=== PATIENT | female | born 1980 | race African-American/Black ===

== ENCOUNTER 2016-09-14 21:17 | Emergency (ER) | payer OTHER ==
[2016-09-14 21:23] VITALS: TEMP 97.7; BMI 37.2
[2016-09-14] MEDS ORDERED: ACETAMINOPHEN 500 MG TABLET (FP) PO ONE (23:51)
--- NOTE | 2016-09-14 23:51 | PDOC ---
History of Present Illness - History of Present Illness Initial Comments: 09/15/16 01:23 Patient is a 36 year old female significant medical hx of gestational HTN and migraines who is presenting to the ED with three days of sinus pressure, dry cough, rhinorrhea, nasal congestion, and headache. Patient complains of left sided headache with photophobia; she notes its like her her past migraines. The patient states that her migraine developed today. The patient has been treating her URI symptoms by alternating between Dayquil and Nyquil. The patient came to the ED today because she ran out of excedrin which she uses to treat her migraines. Denies fever, chills, nausea, vomiting, blurry vision, and diplopia. <Romy Lindsay - Last Filed: 09/15/16 01:42> <Liana Mcclendon - Last Filed: 09/15/16 03:35> - General Chief Complaint: Cold Symptoms Stated Complaint: COLD SYMPTOMS,DIZZINESS Time Seen by Provider: 09/14/16 22:00 Past History <Romy Lindsay - Last Filed: 09/15/16 01:42> - Past Medical History Asthma: No Cancer: No Cardiac Disorders: No Diabetes: No HTN: No Seizures: No Thyroid Disease: No - Psycho/Social/Smoking Cessation Hx Anxiety: No Suicidal Ideation: No Smoking Status: No Smoking History: Never smoked Have you smoked in the past 12 months: No Number of Cigarettes Smoked Daily: 0 Information on smoking cessation initiated: No Hx Alcohol Use: No Drug/Substance Use Hx: No Hx Substance Use Treatment: No <Liana Mcclendon - Last Filed: 09/15/16 03:35> - Past Medical History Allergies/Adverse Reactions: Allergies Allergy/AdvReac Type Severity Reaction Status Date / Time No Known Allergies Allergy Verified 09/14/16 21:20 Home Medications: Ambulatory Orders Amox-Tr/K Cl [Augmentin - 875Mg Tablet] 1 tab PO BID #28 tablet 09/15/16 Butalb/Acetaminophen/Caffeine [Fioricet 50-300-40 mg Capsule] 1 each PO BID PRN #12 capsule MDD 2 09/15/16 Hydrochlorothiazide 25 mg PO DAILY #30 tablet 09/15/16 Review of Systems - Review of Systems Comments:: 09/15/16 01:25 CONSTITUTIONAL: Absent: fever, chills, diaphoresis, generalized weakness, malaise, loss of appetite HEENT: Present: sinus pressure, rhinorrhea, nasal congestion Absent: throat pain, throat swelling, difficulty swallowing, mouth swelling, ear pain, eye pain, visual changes CARDIOVASCULAR: Absent: chest pain, syncope, palpitations, irregular heart rate, lightheadedness , peripheral edema RESPIRATORY: Present: dry cough Absent: shortness of breath, dyspnea with exertion, orthopnea, wheezing, stridor , hemoptysis GASTROINTESTINAL: Absent: abdominal pain, abdominal distension, nausea, vomiting, diarrhea, constipation, melena, hematochezia GENITOURINARY: Absent: dysuria, frequency, urgency, hesitancy, hematuria, flank pain, genital pain MUSCULOSKELETAL: Absent: myalgia, arthralgia, joint swelling SKIN: Absent: rash, itching, pallor HEMATOLOGIC/IMMUNOLOGIC: Absent: easy bleeding, easy bruising, lymphadenopathy, frequent infections ENDOCRINE: Absent: unexplained weight gain, unexplained weight loss, heat intolerance, cold intolerance NEUROLOGIC: Present: headache, photophobia Absent: focal weakness or paresthesia, dizziness, unsteady gait, seizure, mental status changes, bladder or bowel incontinence. PSYCHIATRIC: Absent: anxiety, depression, suicidal or homicidal ideation, hallucinations <Romy Lindsay - Last Filed: 09/15/16 01:42> *Physical Exam - Vital Signs Last Vital Signs Temp Pulse Resp BP Pulse Ox 97.7 F 81 16 154/114 96 09/14/16 21:21 09/14/16 21:21 09/14/16 21:21 09/14/16 21:21 09/14/16 21:21 - Physical Exam Comments: 09/15/16 01:28 GENERAL: Well developed, well nourished. Awake and alert. No acute distress. HEENT: Normocephalic, atraumatic. PERRLA, EOMI. No conjunctival pallor. Sclera are non- icteric. Moist mucous membranes. Oropharynx is clear. NECK: Supple. Full ROM. No JVD. Carotid pulses 2+ and symmetric, without bruits. No thyromegaly. No lymphadenopathy. CARDIOVASCULAR: Regular rate and rhythm. No murmurs, rubs, or gallops. Distal pulses are 2+ and symmetric. PULMONARY: No evidence of respiratory distress. Lungs clear to auscultation bilaterally. No wheezing, rales or rhonchi. ABDOMINAL: Soft. Non-tender. Non-distended. No rebound or guarding. No organomegaly. Normoactive bowel sounds. MUSCULOSKELETAL: Normal range of motion at all joints. No bony deformities or tenderness. No CVA tenderness. EXTREMITIES: No cyanosis. No clubbing. No edema. No calf tenderness. SKIN: Warm and dry. Normal capillary refill. No rashes. No jaundice. NEUROLOGICAL: Alert, awake, appropriate. Cranial nerves 2-12 intact. Normal speech. Gait is normal without ataxia. PSYCHIATRIC: Cooperative. Good eye contact. Appropriate mood and affect. <Romy Lindsay - Last Filed: 09/15/16 01:42> - Vital Signs Last Vital Signs Temp Pulse Resp BP Pulse Ox 97.7 F 81 16 154/114 96 09/14/16 21:21 09/14/16 21:21 09/14/16 21:21 09/14/16 21:21 09/14/16 21:21 <Liana Mcclendon - Last Filed: 09/15/16 03:35> ED Treatment Course - Medications Given in the ED: ED Medications Discontinued Medications Generic Name Dose Route Start Last Admin Trade Name Freq PRN Reason Stop Dose Admin Acetaminophen 975 mg 09/14/16 23:51 09/14/16 23:57 Tylenol - PO 09/14/16 23:52 975 mg ONCE ONE Administration Amlodipine Besylate 10 mg 09/15/16 00:07 09/15/16 00:41 Norvasc - PO 09/15/16 00:08 10 mg ONCE ONE Administration Ibuprofen 600 mg 09/15/16 00:08 09/15/16 00:41 Motrin - PO 09/15/16 00:09 600 mg ONCE ONE Administration <Romy Lindsay - Last Filed: 09/15/16 01:42> Medical Decision Making - Medical Decision Making 09/15/16 03:15 36-year-old female with past medical history of hypertension and migraines presents because of persistent nasal congestion and headache. She was found to have elevated blood pressure. Complaint of thick greenish nasal discharge - tenderness over maxillary sinus -no neuro deficits,no fever she received IV Reglan and Benadryl. Her headache resolved and her blood pressure came down to 140/79 <Liana Mcclendon - Last Filed: 09/15/16 03:35> *DC/Admit/Observation/Transfer - Attestations Scribe Attestion: 09/15/16 01:27 Documentation prepared by Romy Lindsay, acting as senior medical billing specialist for Collin Desir MD. <Romy Lindsay - Last Filed: 09/15/16 01:42> <Liana Mcclendon - Last Filed: 09/15/16 03:35> Diagnosis at time of Disposition: Nasal congestion, Sinus headache Hypertension Qualifiers: Hypertension type: essential hypertension Qualified Code(s): I10 - Essential ( primary) hypertension - Discharge Dispostion Disposition: HOME Condition at time of disposition: Stable - Prescriptions Prescriptions: Amox-Tr/K Cl [Augmentin - 875Mg Tablet] 1 tab PO BID #28 tablet Butalb/Acetaminophen/Caffeine [Fioricet 50-300-40 mg Capsule] 1 each PO BID PRN #12 capsule MDD 2 PRN Reason: Headache Hydrochlorothiazide 25 mg PO DAILY #30 tablet - Patient Instructions Printed Discharge Instructions: DI for Sinusitis, DI for High Blood Pressure Additional Instructions: please to leaf size picker your prescriptions at the pharmacy. Return to the emergency department if you have any worsening symptoms
[2016-09-14] MEDS ORDERED: ACETAMINOPHEN 325 MG TABLET (FP) ONE (23:56)
[2016-09-15] MEDS ORDERED: amLODIPine BESYLATE 10 MG TABLET (FP) PO ONE (00:07)
[2016-09-15] MEDS ORDERED: IBUPROFEN 600 MG TABLET (FP) PO ONE ×2 (00:08→00:39)
[2016-09-15] MEDS ORDERED: amLODIPine BESYLATE 5 MG TABLET (FP) ONE (00:38)
[2016-09-15] MEDS ORDERED: METOCLOPRAMIDE HCL INJECTION 10 MG/2 ML VIAL IVPB ONE (01:58)
[2016-09-15] MEDS ORDERED: METOCLOPRAMIDE HCL INJECTION 10 MG/2 ML VIAL ONE (02:02)
[2016-09-15 03:11] VITALS: BP 141/79; PULSE 74
[2016-09-15] MEDS ORDERED: AMOX TR/POT CLAV 875MG/125MG TABLETS (FP) PO ONE (03:36)
[2016-09-15] MEDS ORDERED: AMOX TR/POT CLAV 875MG/125MG TABLETS (FP) ONE (03:46)
== END 2016-09-15 04:00 | disposition home or self-care (01) ==
LOC: JER 21:17 → JERFT 21:17 → JER 09-15 04:00
PROC: 3E033GC Introduction of Other Therapeutic Substance into Peripheral Vein, Percutaneous Approach (ICD-10-PCS; principal; 2016-09-14)
DX: J32.0 Chronic maxillary sinusitis (principal); I10 Essential (primary) hypertension
CPT/HCPCS: 96374; 96375; 99282-25

== ENCOUNTER 2017-07-16 14:25 | Emergency (ER) | payer OTHER ==
--- NOTE | 2017-07-16 14:54 | PDOC ---
Rapid Medical Evaluation Time Seen by Provider: 07/16/17 14:53 Medical Evaluation: Allergies Allergy/AdvReac Type Severity Reaction Status Date / Time No Known Allergies Allergy Verified 07/16/17 14:52 07/16/17 14:53 I performed a brief in-person evaluation of this patient. The patient presents with a chief complaint of: vaginal bleeding with positive home test. Denies abdominal pain, nausea or dizziness. Pertinent physical exam findings: NAD unlabored breathing non tender abdomen I have ordered the following: urine bhcg, cbc The patient will proceed to the Ed for further evaluation
[2017-07-16 14:55] VITALS: BP 151/109; PULSE 102; TEMP 98.4; BMI 38.0
--- NOTE | 2017-07-16 15:45 | PDOC ---
History of Present Illness - General Chief Complaint: Vaginal Bleeding Stated Complaint: Vaginal Bleeding/ABD PAIN Time Seen by Provider: 07/16/17 14:53 History Source: Patient - History of Present Illness Timing/Duration: reports: constant Past History - Past Medical History Allergies/Adverse Reactions: Allergies Allergy/AdvReac Type Severity Reaction Status Date / Time No Known Allergies Allergy Verified 07/16/17 14:52 Asthma: No Cancer: No Cardiac Disorders: No COPD: No Diabetes: No HTN: No Seizures: No Thyroid Disease: No Other medical history: DENIES. - Suicide/Smoking/Psychosocial Hx Smoking Status: No Smoking History: Never smoked Have you smoked in the past 12 months: No Number of Cigarettes Smoked Daily: 0 Information on smoking cessation initiated: No Hx Alcohol Use: No Drug/Substance Use Hx: No Hx Substance Use Treatment: No Review of Systems - Review of Systems Constitutional: No: Chills, Fever ABD/GI: No: Nausea, Vomiting : No: Dysuria *Physical Exam - Vital Signs Last Vital Signs Temp Pulse Resp BP Pulse Ox 98.4 F 102 H 19 151/109 100 07/16/17 14:52 07/16/17 14:52 07/16/17 14:52 07/16/17 14:52 07/16/17 14:52 - Physical Exam General Appearance: Yes: Appropriately Dressed. No: Apparent Distress HEENT: positive: Normal Voice Neck: positive: Supple Respiratory/Chest: negative: Respiratory Distress Female Pelvic Exam: positive: cervical os closed, vaginal bleeding (sig vag bleed, no clots, os closed). negative: normal adnexa, CMT Gastrointestinal/Abdominal: positive: Soft. negative: Tender Musculoskeletal: negative: CVA Tenderness Integumentary: positive: Dry, Warm Neurologic: positive: Fully Oriented, Alert, Normal Mood/Affect ED Treatment Course - LABORATORY CBC & Chemistry Diagram: 07/16/17 15:00 - ADDITIONAL ORDERS Additional order review: Laboratory Results 07/16/17 07/16/17 15:00 15:00 Beta HCG, Quant 267.5 Urine HCG, Qual Positive - RADIOLOGY Radiology Studies Ordered: Category Date Time Status TRANSVAGINAL ULTRASOUND US [US] Stat Ultrasound 07/16/17 15:18 Ordered Medical Decision Making - Medical Decision Making 07/16/17 15:43 37 yo F, , has + home preg test last week, unsure how far along she is as have irregular menses, here w/ vag bleed today w/ small clots. No abd pain, dysuria, n/v/f/c See exam 1st trimester bleed R/o ectopic vs spon AB vs vag bleed in nl preg -beta -T&S -UA -US 07/16/17 16:58 07/16/17 17:38 UA without signs of infection. O+ on T&S. Beta >200 w/ 0.4 x 0.3 cm saclike structure in endometrium that could represent gestational sac vs pseudosac of ectopic on US. Pt informed of results and states she has OB appt on Wednesday and will f/u. Reasons to return d/w pt 07/16/17 17:56 *DC/Admit/Observation/Transfer Diagnosis at time of Disposition: Threatened - Discharge Dispostion Disposition: HOME Condition at time of disposition: Good - Referrals - Patient Instructions Printed Discharge Instructions: DI for Threatened Additional Instructions: Your beta HCG today was 267. Your ultrasound showed what appears to be a possible gestational sac in your uterus. There was no pole or yolk sac. There was no evidence of an adnexal mass at this time. It is important that you follow up with your OB next week as already scheduled. If symptoms worsen, return to ED - Post Discharge Activity
[2017-07-16 15:50] LABS: BASOPHIL 0.6 % (0-2.0); EOSINOPHIL 0.6 % (0-4.5); MCH 30.9 pg (25.7-33.7); NEUTROPHILS 62.1 % (42.8-82.8); PLATELET COUNT 256 K/MM3 (134-434); RDW 13.8 % (11.6-15.6); WHITE BLOOD COUNT 10.4 K/mm3 (4.0-10.0)
[2017-07-16 17:54] LABS: URINE APPEARANCE SLCLOUDY; URINE BILIRUBIN NEGATIVE (NEGATIVE); URINE BLOOD 3+ (NEGATIVE); URINE COLOR LTYELLOW; URINE GLUCOSE (UA) NEGATIVE (NEGATIVE); URINE KETONE TRACE (NEGATIVE); URINE NITRITE NEGATIVE (NEGATIVE); URINE PROTEIN NEGATIVE (NEGATIVE); URINE UROBILINOGEN NEGATIVE mg/dL (0.2-1.0)
[2017-07-16 18:45] LABS: URINE BACTERIA RARE /hpf (NONE SEEN); URINE MUCUS RARE; URINE RBC 219 /hpf (0-3); URINE WBC 5 /hpf (3-5)
[2017-07-16 21:30] LABS: URINE LEUK ESTERASE Negative (NEGATIVE)
== END 2017-07-16 18:09 | disposition home or self-care (01) ==
LOC: JER 14:25
DX: O26.891 Other specified pregnancy related conditions, first trimester (principal); O20.0 Threatened abortion; Z3A.01 Less than 8 weeks gestation of pregnancy
CPT/HCPCS: 36415; 76830-TC; 81003; 81015; 84702; 84703; 85025; 86850; 86900; 86901; 99282-25

== ENCOUNTER 2018-03-09 13:03 | Emergency (ER) | payer OTHER ==
[2018-03-09 13:08] VITALS: PULSE 82; BMI 37.2
[2018-03-09] MEDS ORDERED: ACETAMINOPHEN 1000 MG/100 ML VIAL (NON FORMULARY) IVPB ONE (14:03)
[2018-03-09] MEDS ORDERED: METOCLOPRAMIDE HCL INJECTION 10 MG/2 ML VIAL IVPB ONE (14:03)
[2018-03-09] MEDS ORDERED: METOCLOPRAMIDE HCL INJECTION 10 MG/2 ML VIAL ONE (14:19)
[2018-03-09] MEDS ORDERED: ACETAMINOPHEN INJECTION 100 ML IVPB ONE (14:26)
--- NOTE | 2018-03-09 14:35 | PDOC ---
History of Present Illness <Jazmine Castellano - Last Filed: 03/09/18 14:51> - History of Present Illness Initial Comments: 03/09/18 14:26 "The patient is a 37 year old female with significant past medical history of chronic migraines who presents to the emergency department complaining of 2 days of left eye pain and blurred vision. She describes the pain as pressure behind the eye and directly below her eyebrow that is worsened with looking to the left and right, 6/10 in severity, and non-radiating. The patient states that today while wearing glasses, vision in the left eye became blurry in her peripheral ibrahim. Pt describes it as dim, and pizarro in color. Denies flashes/ floaters. Denies visual field cuts. Denies double vision. She denies current headache. Denies headache, fever, chills, nausea, vomiting, diarrhea, constipation. Denies chest pain, shortness of breath, back pain. Denies family history of MS, DM, HTN. Allergies: NKA Social history: Surgical history: Family history: stroke, sister; colon cancer. PCP: unknown " <Michael Schumacher - Last Filed: 03/12/18 07:36> - General Chief Complaint: Blurry Vision Stated Complaint: BLURRY VISION, LT EYE PAIN Time Seen by Provider: 03/09/18 13:18 Past History <Jazmine Castellano - Last Filed: 03/09/18 14:51> - Past Medical History Asthma: No Cancer: No Cardiac Disorders: No COPD: No Diabetes: No HTN: No Seizures: No Thyroid Disease: No - Suicide/Smoking/Psychosocial Hx Smoking Status: No Smoking History: Never smoked Have you smoked in the past 12 months: No Number of Cigarettes Smoked Daily: 0 Information on smoking cessation initiated: No Hx Alcohol Use: No Drug/Substance Use Hx: No Substance Use Type: None Hx Substance Use Treatment: No <Michael Schumacher Last Filed: 03/12/18 07:36> - Past Medical History Allergies/Adverse Reactions: Allergies Allergy/AdvReac Type Severity Reaction Status Date / Time No Known Allergies Allergy Verified 03/09/18 13:08 Review of Systems - Review of Systems Comments:: 03/09/18 14:53 "GENERAL/CONSTITUTIONAL: No fever or chills. No weakness. HEAD, EYES, EARS, NOSE AND THROAT: (+)Left eye pain with pizarro-colored, blurry vision. No ear pain or discharge. No sore throat. CARDIOVASCULAR: No chest pain or shortness of breath. RESPIRATORY: No cough, wheezing, or hemoptysis. GASTROINTESTINAL: No nausea, vomiting, diarrhea or constipation. GENITOURINARY: No dysuria, frequency, or change in urination. MUSCULOSKELETAL: No joint or muscle swelling or pain. No back pain. SKIN: No rash NEUROLOGIC: No headache, vertigo, loss of consciousness, or change in strength/ sensation. ENDOCRINE: No increased thirst. No abnormal weight change. HEMATOLOGIC/LYMPHATIC: No anemia, easy bleeding, or history of blood clots. ALLERGIC/IMMUNOLOGIC: No hives or skin allergy." <Michael Schumacher - Last Filed: 03/12/18 07:36> *Physical Exam - Vital Signs Last Vital Signs Temp Pulse Resp BP Pulse Ox 98.0 F 82 16 175/117 98 03/09/18 13:04 03/09/18 13:04 03/09/18 13:04 03/09/18 13:04 03/09/18 13:04 <Jazmine Castellano - Last Filed: 03/09/18 14:51> - Vital Signs Last Vital Signs Temp Pulse Resp BP Pulse Ox 98.0 F 82 16 175/117 98 03/09/18 13:04 03/09/18 13:04 03/09/18 13:04 03/09/18 13:04 03/09/18 13:04 - Physical Exam Comments: 03/09/18 15:05 "GENERAL: Awake, alert, and fully oriented, in no acute distress. HEAD: No signs of trauma EYES: PERRLA, EOMI, sclera anicteric, conjunctiva clear, visual acuity slightly diminished in L eye ENT: Auricles normal inspection, hearing grossly normal, nares patent, oropharynx clear without exudates. Moist mucosa NECK: Nontender, no stepoffs, Normal ROM, supple, no lymphadenopathy, JVD, or masses LUNGS: Breath sounds equal, clear to auscultation bilaterally. No wheezes, and no crackles HEART: Regular rate and rhythm, normal S1 and S2, no murmurs, rubs or gallops ABDOMEN: Soft, nontender, normoactive bowel sounds. No guarding, no rebound. No masses EXTREMITIES: Normal range of motion, no edema. No clubbing or cyanosis. No cords, erythema, or tenderness NEUROLOGICAL: Cranial nerves II through XII intact. 5/5 strength and sensation in all extremities, Normal speech, normal gait, normal cerebellar function SKIN: Warm, Dry, normal turgor, no rashes or lesions noted." <Michael Schumacher - Last Filed: 03/12/18 07:36> ED Treatment Course - LABORATORY CBC & Chemistry Diagram: 03/09/18 14:35 03/09/18 14:35 <Jazmine Castellano - Last Filed: 03/09/18 14:51> - LABORATORY CBC & Chemistry Diagram: 03/09/18 14:35 03/09/18 14:35 - RADIOLOGY Radiology Studies Ordered: Category Date Time Status HEAD CT WITHOUT CONTRAST [CT] Stat CT Scan 03/09/18 14:02 Ordered <Michael Schumacher - Last Filed: 03/12/18 07:36> Medical Decision Making - Medical Decision Making 03/09/18 14:[address] Luke, neurologist on-call, at 2:45 pm. 03/09/18 14:[address] Al, opthalmologist on-call, at 2:48 pm. <Jazmine Castellano - Last Filed: 03/09/18 14:51> - Medical Decision Making 03/09/18 15:02 37 F with L eye blurred vision. No evidence of conjunctivitis/iritis on exam. No evidence of acute angle closure glaucoma. No evidence of temporal arteritis. Pt with elevated BP but no TURNER, no other neuro deficits. No indication for CT head at this time. Will need to evaluate for optic neuritis. - Spoke with Dr. Luke, who recommends outpt work up with ophtho and possible outpt MRI for evaluation of MS. Does not recommend starting steroids at this time. - Spoke with Dr. Al, who can see pt in eye clinic today. Pt is well appearing, Clinically stable for DC at this time. Pt with elevated BP, but this is likely chronic for pt. Pt understands need for outpt f/u. I discussed the physical exam findings, ancillary test results and final diagnoses with the patient. I answered all of the patient's questions. The patient was satisfied with the care received and felt comfortable with the discharge plan and treatment plan. The patient agrees to follow up with the primary care physician within 24-72 hours. <iMchael Schumacher - Last Filed: 03/12/18 07:36> *DC/Admit/Observation/Transfer - Attestations Scribe Attestion: 03/09/18 14:42 Documentation prepared by Jazmine Castellano, acting as certified medical biller for Michael Schumacher MD. <Jazmine Castellano - Last Filed: 03/09/18 14:51> - Attestations Physician Attestion: 03/09/18 15:02 I, Dr. Michael Schumacher MD, attest that this document has been prepared under my direction and personally reviewed by me in its entirety. I further attest, that it accurately reflects all work, treatment, procedures and medical decision -making performed by me. <Michael Schumacher - Last Filed: 03/12/18 07:36> Diagnosis at time of Disposition: Blurred vision, left eye - Discharge Dispostion Disposition: HOME Condition at time of disposition: Good - Referrals Referrals: Robbie Luke MD [Staff Physician] - Jayson Al MD [Staff Physician] - Samy Mitchell MD [Staff Physician] - - Patient Instructions Printed Discharge Instructions: Optic Neuritis Additional Instructions: Please go directly to ophthalmology clinic, located at [address] [place] [address]. Dr. Al is waiting to see you as soon as you leave the ER. You need an evaluation to rule out optic neuritis. You also need to follow up with a neurologist. Call the number provided to make an appointment. You also need to have your blood pressure re-checked by your primary doctor, as it was elevated today. Uncontrolled blood pressure can eventually lead to kidney disease, heart disease, other serious illness, disability, or even . If you do not have a primary doctor, call the number provided to follow up with one of ours. If you experience worsening vision loss, headache, fevers, or any other concerning symptoms, return to the ER immediately.
[2018-03-09 14:49] LABS: BASO % 0.9 % (0-2.0); EOS % 1.8 % (0-4.5); HEMOGLOBIN 13.1 GM/dL (10.7-15.3); LYMPH % 40.4 % (8-40); MCH 30.4 pg (25.7-33.7); MCHC 33.7 g/dl (32.0-36.0); MEAN CELL VOLUME 90.3 fl (80-96); MEAN PLT VOLUME 11.1 fl (7.5-11.1); MONO % 6.3 % (3.8-10.2); NEUT % 50.6 % (42.8-82.8); PLATELET COUNT 240 K/MM3 (134-434); RBC 4.32 M/mm3 (3.60-5.2); RDW 13.2 % (11.6-15.6); WHITE BLOOD COUNT 6.3 K/mm3 (4.0-10.0)
[2018-03-09 14:54] LABS: URINE APPEARANCE CLEAR; URINE BILIRUBIN NEGATIVE (<2.0 mg/dL); URINE COLOR STRAW; URINE GLUCOSE (UA) NEGATIVE (NEGATIVE); URINE KETONE NEGATIVE (NEGATIVE); URINE LEUK ESTERASE NEGATIVE (NEGATIVE); URINE NITRITE NEGATIVE (NEGATIVE); URINE PROTEIN NEGATIVE (NEGATIVE); URINE UROBILINOGEN NEGATIVE mg/dL (0.2-1.0)
[2018-03-09 14:55] LABS: HCG,QUALITATIVE URINE NEGATIVE
[2018-03-09 15:04] LABS: ALBUMIN 3.9 g/dl (3.4-5.0); ALK PHOS 68 U/L (45-117); ANION GAP 6 (8-16); BILIRUBIN,TOTAL 0.1 mg/dL (0.2-1.0); BLOOD UREA NITROGEN 12 mg/dL (7-18); CHLORIDE 107 mmol/L (98-107); CO2 30 mmol/L (21-32); CREATININE 0.8 mg/dL (0.55-1.02); GLUCOSE,RANDOM 91 mg/dL (74-106); SGOT/AST 27 U/L (15-37); SGPT/ALT 47 U/L (12-78); SODIUM 143 mmol/L (136-145); TOT PROT 6.8 g/dl (6.4-8.2)
[2018-03-09 15:04] LABS: EPI CELLS RARE /HPF (FEW); URINE BACTERIA RARE /hpf (NONE SEEN)
[2018-03-09 15:40] VITALS: BP 137/95; TEMP 98
--- NOTE | 2018-03-12 10:25 | PDOC ---
Patient Follow-up (Call Back) - Post ED Follow - Up Condition at time of discharge: Good Disposition at time of original discharge: HOME Reason for Call Back: Abnwl. Microbiology (+ucx, cotter sensitive Spoke to pt, states her opthomologist placed her on bactrim and feeling better)
== END 2018-03-09 15:41 | disposition home or self-care (01) ==
LOC: JER 13:03
PROC: 3E033NZ Introduction of Analgesics, Hypnotics, Sedatives into Peripheral Vein, Percutaneous Approach (ICD-10-PCS; principal; 2018-03-09)
PROC: 3E033GC Introduction of Other Therapeutic Substance into Peripheral Vein, Percutaneous Approach (ICD-10-PCS; 2018-03-09)
DX: H53.8 Other visual disturbances (principal); G89.29 Other chronic pain
CPT/HCPCS: 36415; 80053; 81003; 81015; 84703; 85025; 87086; 87186; 99283-25; J0131